=== PATIENT | female | born 1960 | race Hispanic/Latino ===

== ENCOUNTER 2018-04-23 08:23 | Emergency (ER) | payer OTHER ==
[~2018-04-23] VITALS: Ht 154.9 cm; Wt 74.8 kg
== END 2018-04-23 09:20 | disposition left against medical advice (07) ==
LOC: ER 08:23
DX: R51 Headache (principal)

== ENCOUNTER 2022-04-11 09:50 | Observation (INO) | payer MEDICARE ==
[~2022-04-11] VITALS: Ht 152.4 cm; Wt 64.9 kg
[2022-04-11] MEDS ORDERED: SODIUM CHLORIDE FLUSH 10 ML SYR IV PRN (10:00)
[2022-04-11] MEDS ORDERED: ASPIRIN 325 MG TAB PO ONE ×2 (10:00→16:55)
[2022-04-11] MEDS ORDERED: SODIUM CHLORIDE 0.9% 1000ML 1,000 ML IV ONE (10:00)
[2022-04-11 10:16] LABS: BASOPHILS # (AUTO) 0.1 (0.0-0.1); BASOPHILS % 1.7 % (0.0-1.0); EOSINOPHILS # (AUTO) 0.4 (0.0-0.4); EOSINOPHILS % 5.3 % (0.0-6.0); HEMOGLOBIN 9.7 g/dL (12.0-16.0); LYMPHOCYTES # (AUTO) 2.7 (1.0-3.2); LYMPHOCYTES % 32.9 % (18.0-39.1); MEAN CORPUSCULAR HEMOGLOBIN 29.7 pg (28-32); MEAN CORPUSCULAR HGB CONC 33.4 g/dL (31-35); MEAN CORPUSCULAR VOLUME 88.7 fL (81-99); MONOCYTES # (AUTO) 0.4 (0.2-0.8); MONOCYTES % 5.3 % (4.4-11.3); NEUTROPHILS # (AUTO) 4.4 (2.1-6.9); NEUTROPHILS % 54.4 % (38.7-80.0); PLATELET COUNT 703 x10e3/uL (140-360); RED BLOOD COUNT 3.27 x10e6/uL (3.6-5.1); RED CELL DISTRIBUTION WIDTH 12.6 % (11.7-14.4)
[2022-04-11 10:25] LABS: BACTERIA,URINE FEW /HPF; CLARITY,URINE CLEAR (CLEAR); COLOR,URINE YELLOW (YELLOW); EPITHELIAL CELLS,URINE FEW /LPF; KETONES,URINE NEGATIVE (NEGATIVE); LEUKOCYTE ESTERASE ,URINE NEGATIVE (NEGATIVE); NITRITE,URINE NEGATIVE (NEGATIVE); PROTEIN,URINE DIPSTICK >=300 (NEGATIVE); URINE UROBILINOGEN 0.2 mg/dL (0.2 - 1)
[2022-04-11 10:31] LABS: INR 0.99; PROTHROMBIN TIME 13.3 seconds (11.9-14.5)
[2022-04-11 10:39] LABS: ALANINE AMINOTRANSFERASE 18 IU/L (0-55); ALBUMIN 1.8 g/dL (3.5-5.0); ALBUMIN/GLOBULIN RATIO 0.5 (0.8-2.0); ALKALINE PHOSPHATASE 91 IU/L (40-150); ANION GAP 12.2 mmol/L (8-16); BLOOD UREA NITROGEN 31 mg/dL (7-26); BUN/CREATININE RATIO 15 (6-25); CARBON DIOXIDE 17 mmol/L (22-29); CHLORIDE 105 mmol/L (98-107); CREATININE, SERUM 2.09 mg/dL (0.57-1.11); GLUCOSE 328 mg/dL (74-118); LIPASE 248 U/L (8-78); POTASSIUM 3.2 mmol/L (3.5-5.1); SODIUM 131 mmol/L (136-145)
[2022-04-11] MEDS ORDERED: SODIUM CHLORIDE 0.9% 1000ML 1,000 ML IV SCH ×2 (13:15→16:55)
[2022-04-11] MEDS ORDERED: INSULIN REGULAR, HUMAN 100 UNIT/1 ML SQ ONE ×2 (13:45→16:55)
[2022-04-11] MEDS ORDERED: POTASSIUM CHLORIDE 20 MEQ TAB CR PO ONE (13:45)
[2022-04-11] MEDS ORDERED: DEXTROSE 50% SYRINGE 50 ML IV PRN (14:00)
[2022-04-11] MEDS ORDERED: ONDANSETRON HCL INJ 2MG/ML 2ML 2 MG/ML VIAL IV PRN (14:00)
[2022-04-11] MEDS: SODIUM CHLORIDE 0.9% 1000ML 1,000 ML IV SCH ×2 (16:41→20:48)
[2022-04-11] MEDS: INSULIN LISPRO 100 UNIT/1 ML 3ML VIAL SQ SCH ×2 (17:03→21:54)
[2022-04-11 17:56] VITALS: BP 153/65
[2022-04-11 18:03] VITALS: BP 153/65
[2022-04-11 18:40] LABS: CREATINE KINASE MB 1.5 ng/mL (0-5.0)
[2022-04-11] MEDS ORDERED: LEVOTHYROXINE75 MCG PO (18:46)
[2022-04-11] MEDS ORDERED: LASIX40 MG PO (18:46)
[2022-04-11] MEDS ORDERED: ATORVASTATIN CA10 MG PO (18:46)
[2022-04-11] MEDS ORDERED: FENOFIBRATE145 MG PO (18:46)
[2022-04-11 20:00] VITALS: BP 118/60
[2022-04-11] MEDS: SODIUM BICARBONATE 650 MG TAB PO SCH (20:48)
[2022-04-11] MEDS: ACETAMINOPHEN 325 MG TAB PO PRN (20:51)
[2022-04-11] MEDS ORDERED: ATORVASTATIN 40 MG TAB PO SCH (21:00)
[2022-04-11] MEDS ORDERED: INSULIN GLARGINE 100 UNITS/ML VIAL SQ SCH (21:00)
[2022-04-11 22:48] LABS: CREATINE KINASE MB 1.3 ng/mL (0-5.0)
[2022-04-12 04:00] VITALS: BP 116/52
[2022-04-12 04:59] LABS: BASOPHILS # (AUTO) 0.1 (0.0-0.1); BASOPHILS % 1.5 % (0.0-1.0); EOSINOPHILS # (AUTO) 0.4 (0.0-0.4); EOSINOPHILS % 5.4 % (0.0-6.0); HEMATOCRIT 24.1 % (34.2-44.1); LYMPHOCYTES # (AUTO) 2.3 (1.0-3.2); LYMPHOCYTES % 31.8 % (18.0-39.1); MEAN CORPUSCULAR HEMOGLOBIN 29.2 pg (28-32); MEAN CORPUSCULAR HGB CONC 33.2 g/dL (31-35); MONOCYTES # (AUTO) 0.5 (0.2-0.8); MONOCYTES % 6.4 % (4.4-11.3); NEUTROPHILS # (AUTO) 3.9 (2.1-6.9); NEUTROPHILS % 54.5 % (38.7-80.0); PLATELET COUNT 560 x10e3/uL (140-360); RED BLOOD COUNT 2.74 x10e6/uL (3.6-5.1); RED CELL DISTRIBUTION WIDTH 12.6 % (11.7-14.4)
[2022-04-12 05:29] LABS: ALBUMIN 1.3 g/dL (3.5-5.0); ALBUMIN/GLOBULIN RATIO 0.5 (0.8-2.0); ANION GAP 10.3 mmol/L (8-16); CALCIUM 7.2 mg/dL (8.4-10.2); CREATININE, SERUM 1.79 mg/dL (0.57-1.11); POTASSIUM 3.3 mmol/L (3.5-5.1)
[2022-04-12] MEDS: SODIUM CHLORIDE 0.9% 1000ML 1,000 ML IV SCH (05:46)
[2022-04-12 05:55] LABS: CHOL/HDL RATIO 4.2 (3.0-3.6); CREATINE KINASE 36 IU/L (29-168)
[2022-04-12] MEDS ORDERED: LEVOTHYROXINE SODIUM 75 MCG TAB PO SCH (06:00)
[2022-04-12] MEDS: INSULIN LISPRO 100 UNIT/1 ML 3ML VIAL SQ SCH ×2 (07:30→11:30)
[2022-04-12] MEDS: ACETAMINOPHEN 325 MG TAB PO PRN (08:31)
[2022-04-12] MEDS: SODIUM BICARBONATE 650 MG TAB PO SCH ×2 (08:31→14:11)
[2022-04-12 08:56] VITALS: BP 116/52
[2022-04-12 08:59] VITALS: BP 136/67
[2022-04-12] MEDS ORDERED: POTASSIUM CHLORIDE 10MEQ EA PO ONE (11:00)
[2022-04-12] MEDS ORDERED: ACETAMIN/BUTALBITAL/CAFFEINE TAB PO PRN (11:15)
[2022-04-12] MEDS ORDERED: LANTUS 3ML100 UNITS/ SQ (11:49)
[2022-04-12 11:59] VITALS: BP 140/66
[2022-04-12] MEDS ORDERED: ONDANSETRON HCL 4 MG ORAL DISINTEGRATING TAB PO PRN (15:15)
== END 2022-04-12 15:29 | disposition home or self-care (01) ==
LOC: ER 10:00 → ERHOLD 13:54 → MED/SURG2 17:36
PROVIDERS: ADMIT Internal Medicine; ATTEND Internal Medicine
DX: R07.89 Other chest pain (principal); W19.XXXA Unspecified fall, initial encounter; Z20.822 Contact with and (suspected) exposure to COVID-19; E11.65 Type 2 diabetes mellitus with hyperglycemia; I12.9 Hypertensive chronic kidney disease with stage 1 through stage 4 chronic kidney disease, or unspecified chronic kidney disease; E11.22 Type 2 diabetes mellitus with diabetic chronic kidney disease; E03.9 Hypothyroidism, unspecified; E78.00 Pure hypercholesterolemia, unspecified; H54.7 Unspecified visual loss; E11.39 Type 2 diabetes mellitus with other diabetic ophthalmic complication; E87.1 Hypo-osmolality and hyponatremia; E87.6 Hypokalemia; N18.32 Chronic kidney disease, stage 3b
CPT/HCPCS: 36415 ×2; 71101; 80053 ×2; 80061; 81001; 82550 ×2; 82553 ×2; 82948 ×2; 83036; 83690 ×2; 83880; 84484 ×2; 85025 ×2; 85610; 85730; 93005; 96372; 99284; G0378 ×2; J0696 ×2; J1815; J1817; J7030 ×2; U0002